=== PATIENT | male | born 1995 | race Caucasian/White ===

== ENCOUNTER 2019-01-05 17:32 | Emergency (ER) | payer OTHER ==
[~2019-01-05] VITALS: Ht 175.3 cm; Wt 79.4 kg
[~2019-01-05 17:32] MED LIST: LEXAPRO20 MG PO; NORCO 5-325 TA1 EACH PO
[2019-01-05 17:53] LABS: URINE BILIRUBIN NEGATIVE (Negative); URINE BLOOD NEGATIVE (Negative); URINE CLARITY CLEAR; URINE COLOR YELLOW; URINE GLUCOSE-RANDOM* NEGATIVE (Negative); URINE KETONES NEGATIVE (Negative); URINE LEUKOCYTES-REFLEX NEGATIVE (Negative); URINE NITRITE-REFLEX NEGATIVE (Negative); URINE PROTEIN (DIPSTICK) NEGATIVE (Negative); URINE UROBILINOGEN 0.2 E.U./dl (0.2-1.0)
[2019-01-05 18:02] LABS: SSA (PROTEIN CONFIRMATORY) NEGATIVE (Negative)
[2019-01-05] MEDS ORDERED: BACTRIM DS TAB1 EACH PO (18:25)
[2019-01-05 18:26] LABS: ABSOLUTE NEUTROPHILS 4.9 thou/uL (1.4-8.2); BASOPHILS 0.3 % (0.0-2.0); EOSINOPHILS 5.4 % (0.0-3.0); HEMATOCRIT 43.8 % (42.0-52.0); HEMOGLOBIN 14.9 gm/dL (14.0-18.0); LYMPHOCYTES 14.6 % (24.0-44.0); MCH 28.8 pg (26.0-34.0); MCV 84.8 fL (80.0-100.0); MONOCYTES 10.7 % (1.0-8.0); PLATELET COUNT 273 thou/uL (150-400); RBC 5.17 mil/uL (4.50-6.00); WBC 7.1 thou/uL (4.0-11.0)
[2019-01-05 18:34] LABS: ANION GAP 9 mmol/L (7-16); BUN 16 mg/dL (7-18); CALCIUM 9.6 mg/dL (8.5-10.1); CHLORIDE 100 mmol/L (98-107); CO2 26 mmol/L (21-32); CREATININE 1.4 mg/dL (0.7-1.3); GLUCOSE 91 mg/dL (74-106); POTASSIUM 4.1 mmol/L (3.5-5.1); SODIUM 135 mmol/L (136-145)
[2019-01-05 18:41] LABS: ALBUMIN 4.4 g/dL (3.4-5.0); DIRECT BILIRUBIN < 0.1 mg/dL (<0.1-0.3); LIPASE 122 U/L (73-393); SGOT 30 U/L (15-37); SGPT 58 U/L (30-65); TOTAL BILIRUBIN 0.4 mg/dL (<0.1-1.0); TOTAL PROTEIN 8.2 g/dL (6.4-8.2)
[2019-01-05] MEDS ORDERED: IBUPROFEN 400400 M2 PO (22:21)
[2019-01-05 23:03] VITALS: BP 116/51
== END 2019-01-05 23:03 | disposition home or self-care (01) ==
LOC: ER 17:32
PROVIDERS: Physician Assistant; Student in an Organized Health Care Education/Training Program
DX: I88.0 Nonspecific mesenteric lymphadenitis (principal)